=== PATIENT | male | born 1985 | race Two or more races ===

== ENCOUNTER 2019-07-15 12:33 | Emergency (ER) | payer SELFPAY ==
[~2019-07-15] VITALS: Ht 185.4 cm; Wt 70.3 kg
[2019-07-15 13:03] VITALS: BP 164/94
--- NOTE | 2019-07-15 13:57 | RAD ---
EXAM: Left forearm, 2 views; left hand, 3 views. HISTORY: Dog bite. COMPARISON: None. FINDINGS: 2 views of the left forearm and 3 views of the left hand are obtained. There is no fracture, dislocation or subluxation. There are few benign bone islands. No radiodense foreign body is seen. There is soft tissue swelling along the radial aspect of the distal forearm possibly due to a contusion. IMPRESSION: No acute osseous finding. Electronically signed by: Maile Matute MD (07/15/2019 1:54 PM) [place] [id number]
--- NOTE | 2019-07-15 14:00 | PHYS DOC ---
Past Medical History Past Medical History: No Pertinent History Past Surgical History: Other Additional Past Surgical Histo: right kidney tumor removed Alcohol Use: None Drug Use: None Adult General Chief Complaint Chief Complaint: ANIMAL BITE HPI HPI Patient is a 33 year old male that presents with a dog bite by his dog. This happened early this morning around 4:30 AM. The patient was bit in the left wrist/forearm multiple times. The patient states that he is not up-to-date on his tetanus shot. Review of Systems Review of Systems Constitutional: Denies fever or chills [] Eyes: Denies change in visual acuity, redness, or eye pain [] HENT: Denies nasal congestion or sore throat [] Respiratory: Denies cough or shortness of breath [] Cardiovascular: No additional information not addressed in HPI [] GI: Denies abdominal pain, nausea, vomiting, bloody stools or diarrhea [] : Denies dysuria or hematuria [] Musculoskeletal: Denies back pain or joint pain [] Integument: Reports multiple dog bites to left forearm, and right arm. Neurologic: Denies headache, focal weakness or sensory changes [] Endocrine: Denies polyuria or polydipsia [] Complete systems were reviewed and found to be within normal limits, except as documented in this note. Current Medications Current Medications Current Medications Medications (Trade) Dose Ordered Sig/Solitario Start Time Stop Time Status Last Admin Dose Admin Diphtheria/ Tetanus/Acell Pertussis (Boostrix) 0.5 ml ONCE ONCE 07/15/19 14:30 07/15/19 14:31 DC 07/15/19 14:25 0.5 ML Allergies Allergies Allergies Coded Allergies Type Severity Reaction Last Updated Verified No Known Drug Allergies 07/15/19 No Physical Exam Physical Exam Constitutional: Well developed, well nourished, no acute distress, non-toxic appearance. [] HENT: Normocephalic, atraumatic, bilateral external ears normal, oropharynx moist, no oral exudates, nose normal. [] Eyes: PERRLA, EOMI, conjunctiva normal, no discharge. [] Neck: Normal range of motion, no tenderness, supple, no stridor. [] Cardiovascular:Heart rate regular rhythm, no murmur [] Lungs & Thorax: Bilateral breath sounds clear to auscultation [] Abdomen: Bowel sounds normal, soft, no tenderness, no masses, no pulsatile masses. [] Skinhas puncture wound to L medial wrist, and puncture wound to L forearm, puncture wound to posterior L hand, Right forearm. Back: No tenderness, no CVA tenderness. [] Extremities: No tenderness, no cyanosis, no clubbing, ROM intact, no edema. [] Neurologic: Alert and oriented X 3, normal motor function, normal sensory function in left hand, can make ok sign and flex hand, no focal deficits noted. [] Psychologic: Affect normal, judgement normal, mood normal. [] Current Patient Data Vital Signs Vital Signs Date Time Temp Pulse Resp B/P (MAP) Pulse Ox O2 Delivery O2 Flow Rate FiO2 07/15/19 13:03 98.0 53 16 164/94 (117) 94 Room Air 98.0 EKG EKG [] Radiology/Procedures Radiology/Procedures [] IMAGING REPORT Signed PATIENT: PAULINE CEEACCOUNT: [id number] : 1985 LOCATION: ER AGE: 33 SEX: M EXAM STATUS: REG ER ORD. PHYSICIAN: YANCI CARNEY APRN REASON: dog bite PROCEDURE: FOREARM LEFT EXAM: Left forearm, 2 views; left hand, 3 views. HISTORY: Dog bite. COMPARISON: None. FINDINGS: 2 views of the left forearm and 3 views of the left hand are obtained. There is no fracture, dislocation or subluxation. There are few benign bone islands. No radiodense foreign body is seen. There is soft tissue swelling along the radial aspect of the distal forearm possibly due to a contusion. IMPRESSION: No acute osseous finding. Electronically signed by: Maile Dominguez MD (07/15/2019 1:54 PM) [id number] DICTATED and SIGNED BY: MAILE DOMINGUEZ MD DATE: 07/15/19 6064 Course & Med Decision Making Course & Med Decision Making Pertinent Labs and Imaging studies reviewed. (See chart for details) Patient has edema and swelling to forearm. I am concerned about possible fracture or infection. Will get x-ray, give tetanus, and prescribe antibiotics. Irrigated puncture wounds out with 200 mL of copious irrigation of saline. Dragon Disclaimer Dragon Disclaimer This electronic medical record was generated, in whole or in part, using a voice recognition dictation system. Departure Departure Impression: Primary Impression: Animal bite Disposition: 01 HOME, SELF-CARE Condition: STABLE Referrals: NO PCP (PCP) Patient Instructions: Animal Bite Additional Instructions: Thank you for visiting [facility]. We appreciate you trusting us with your care. If any additional problems come up don't hesitate to return to visit us. Please follow up with your primary care provider so they can plan additional care if needed and know about the problem that you had. If symptoms worsen come back to the Emergency Department. Any concerning symptoms that start such as chest pain, shortness of air, weakness or numbness on one side of the body, running high fevers or any other concerning symptoms return to the ER. You have been prescribed an antibiotic today to help fight your infection. Please take all of the antibiotic as directed. If after 48 hours the infection is not improving, please return for more care. If the infection worsens, return to ER for additional care. Scripts Amoxicillin/Potassium Clav (AUGMENTIN 875-125 TABLET) 1 Each Tablet 1 TAB PO BID for 7 Days, #14 TAB Prov: YANCI CARNEY APRN 07/15/19 YANCI CARNEY APRN Jul 15, 2019 14:00
[2019-07-15] MEDS ORDERED: DIPHTH,PERTUSS(ACELL),TET TOX 0.5 ML DISP.SYRIN. VAX IM ONE (14:30)
[2019-07-15] MEDS ORDERED: AMOX1TAB61 PO (15:15)
== END 2019-07-15 15:25 | disposition home or self-care (01) ==
LOC: ER 12:33
DX: S61.532A Puncture wound without foreign body of left wrist, initial encounter (principal); S51.832A Puncture wound without foreign body of left forearm, initial encounter; S61.432A Puncture wound without foreign body of left hand, initial encounter; S51.831A Puncture wound without foreign body of right forearm, initial encounter; W54.0XXA Bitten by dog, initial encounter; Y93.89 Activity, other specified; Y92.89 Other specified places as the place of occurrence of the external cause; Y99.8 Other external cause status
CPT/HCPCS: 73090; 73130; 90471; 90715; 99284